=== PATIENT | female | born 1955 | race Two or more races ===

== ENCOUNTER 2025-08-03 20:00 | Emergency (ER) | payer MEDICARE ==
[~2025-08-03] VITALS: Ht 160 cm; Wt 72.7 kg
[2025-08-03 20:18] VITALS: BP 170/85; PULSE 121; RESP 20; TEMP 98.6; O2SAT 96
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
== END 2025-08-03 21:09 ==
LOC: ER 20:02
DX: Z00.00 Encounter for general adult medical examination without abnormal findings (principal); V89.2XXA Person injured in unspecified motor-vehicle accident, traffic, initial encounter; Y93.89 Activity, other specified; Y92.89 Other specified places as the place of occurrence of the external cause; Y99.8 Other external cause status
CPT/HCPCS: 99283